=== PATIENT | female | born 1950 | race Native Hawaiian/Other Pacific Islander ===

== ENCOUNTER 2016-05-20 13:06 | Outpatient (CLI) | payer OTHER ==
[~2016-05-20 13:06] MED LIST: ASA LOW DOSE81 MG PO; ATENOLOL100 MG PO; CYCL10TA35 PO; LEVO0.0218 PO; LISI20TA11 PO; MELOXICAM7.5 MG OR; NEXIUM40 M1 PO; ROSU10TA PO
== END 2016-05-20 19:23 | disposition home or self-care (01) ==
LOC: CT 13:06
DX: I62.9 Nontraumatic intracranial hemorrhage, unspecified (principal); R05 Cough
CPT/HCPCS: 82565; 84520; Q9963

== ENCOUNTER 2016-05-21 11:06 | Outpatient (CLI) | payer OTHER | END 2016-05-21 19:14 | disposition home or self-care (01) | LOC: MAMMO 11:06 | DX: Z12.31 Encounter for screening mammogram for malignant neoplasm of breast (principal) | CPT/HCPCS: G0202-TC ==

== ENCOUNTER 2017-04-28 09:09 | Outpatient (CLI) | payer OTHER | END 2017-04-28 20:06 | disposition home or self-care (01) | LOC: CT 09:09 | DX: C34.90 Malignant neoplasm of unspecified part of unspecified bronchus or lung (principal) | CPT/HCPCS: 36415; 82565; 84520; Q9963 ==

== ENCOUNTER 2017-05-23 08:21 | Outpatient (CLI) | payer OTHER | END 2017-05-23 22:59 | disposition home or self-care (01) | LOC: MAMMO 08:21 | DX: Z12.31 Encounter for screening mammogram for malignant neoplasm of breast (principal) ==

== ENCOUNTER 2018-04-01 12:26 | Outpatient (CLI) | payer OTHER | END 2018-04-01 23:04 | disposition home or self-care (01) | LOC: MAMMO 12:26 | DX: N64.4 Mastodynia (principal) ==

== ENCOUNTER 2018-05-19 09:29 | Outpatient (CLI) | payer OTHER | END 2018-05-19 22:58 | disposition home or self-care (01) | LOC: CT 09:29 | DX: C34.90 Malignant neoplasm of unspecified part of unspecified bronchus or lung (principal); Z78.9 Other specified health status ==

== ENCOUNTER 2018-07-23 08:49 | Outpatient (CLI) | payer OTHER ==
[~2018-07-23] VITALS: Ht 162.6 cm; Wt 61.2 kg
[2018-07-23 09:10] VITALS: BP 153/70; TEMP 98.1
== END 2018-07-23 10:08 | disposition home or self-care (01) ==
LOC: INF 08:49
DX: M81.0 Age-related osteoporosis without current pathological fracture (principal)
CPT/HCPCS: 36415; 82310; 96372; J0897

== ENCOUNTER 2019-01-22 10:00 | Outpatient (CLI) | payer OTHER ==
[~2019-01-22] VITALS: Ht 160 cm; Wt 61.2 kg
[2019-01-22 10:10] VITALS: BP 135/63; TEMP 98.6
== END 2019-01-22 11:00 | disposition home or self-care (01) ==
LOC: INF 10:00
DX: M81.0 Age-related osteoporosis without current pathological fracture (principal)
CPT/HCPCS: 36415; 82310; 96372; J0897

== ENCOUNTER 2019-04-05 09:26 | Outpatient (CLI) | payer OTHER | END 2019-04-05 19:11 | disposition home or self-care (01) | LOC: MAMMO 09:26 | DX: Z12.31 Encounter for screening mammogram for malignant neoplasm of breast (principal) ==

== ENCOUNTER 2019-07-30 09:58 | Outpatient (CLI) | payer OTHER ==
[~2019-07-30] VITALS: Ht 160 cm; Wt 61.2 kg
== END 2019-07-30 19:19 | disposition home or self-care (01) ==
LOC: RAD 09:58 → LAB 09:58 → INF 09:58
DX: M81.0 Age-related osteoporosis without current pathological fracture (principal)
CPT/HCPCS: 36415; 82310; 96372; J0897

== ENCOUNTER 2019-10-25 10:14 | Outpatient (CLI) | payer OTHER | END 2019-10-25 19:16 | disposition home or self-care (01) | LOC: CT 10:14 | DX: R91.1 Solitary pulmonary nodule (principal) ==

== ENCOUNTER 2019-11-01 10:11 | Outpatient (CLI) | payer OTHER | END 2019-11-01 22:59 | disposition home or self-care (01) | LOC: US 10:11 | DX: R60.0 Localized edema (principal) ==

== ENCOUNTER 2019-11-16 14:32 | Outpatient (CLI) | payer OTHER | END 2019-11-16 19:17 | disposition home or self-care (01) | LOC: US 14:32 | DX: R42 Dizziness and giddiness (principal); E04.1 Nontoxic single thyroid nodule ==

== ENCOUNTER 2020-01-31 08:32 | Outpatient (CLI) | payer OTHER ==
[~2020-01-31] VITALS: Ht 160 cm; Wt 61.2 kg
[2020-01-31 09:00] VITALS: BP 144/66; TEMP 98.7
== END 2020-01-31 10:25 | disposition home or self-care (01) ==
LOC: INF 08:32
PROVIDERS: ATTEND Internal Medicine Endocrinology, Diabetes & Metabolism
DX: M81.0 Age-related osteoporosis without current pathological fracture (principal)
CPT/HCPCS: 36415; 82310; 96372; J0897

== ENCOUNTER 2020-02-09 16:05 | Observation (INO) | payer OTHER ==
[~2020-02-09] VITALS: Ht 162.6 cm; Wt 63.3 kg
[2020-02-09] VITALS (8 sets, daily range): BP systolic 120–167; BP diastolic 55–106; TEMP 98–98.5; Ht 162.6 cm; Wt 63.3 kg
[2020-02-09 16:25] LABS: PLATELET COUNT 203 K/uL (152-353)
[2020-02-09 16:31] LABS: POTASSIUM 4.4 mmol/L (3.6-5.2); SODIUM 135 mmol/L (136-145)
[2020-02-09 16:47] LABS: PARTIAL THROMBOPLASTIN TIME 22.7 SECONDS (24.5-33.6)
[2020-02-10 04:02] VITALS: BP 128/57; TEMP 98.6
[2020-02-10 08:00] VITALS: BP 129/57; TEMP 98.2
[2020-02-10 12:00] VITALS: BP 122/61; TEMP 97.7
[2020-02-10 16:00] VITALS: BP 138/51; TEMP 98.2
== END 2020-02-10 18:06 | disposition home or self-care (01) ==
LOC: ED 16:05 → MED/SURG 18:50
PROVIDERS: ADMIT Family Medicine; ATTEND Internal Medicine
DX: R41.82 Altered mental status, unspecified (principal); N95.1 Menopausal and female climacteric states; E03.8 Other specified hypothyroidism; I10 Essential (primary) hypertension; E78.49 Other hyperlipidemia; Z85.118 Personal history of other malignant neoplasm of bronchus and lung
CPT/HCPCS: 36415; 80053; 81000; 82533; 82550; 82553; 84436; 84443; 84479; 84484; 85027; 85610; 85730; 87635; 93005; 96374; 96375; 99220; 99284; G0378; J2405; U0003

== ENCOUNTER 2020-04-18 09:20 | Outpatient (CLI) | payer OTHER | END 2020-04-18 21:04 | disposition home or self-care (01) | LOC: MAMMO 09:20 | PROVIDERS: ATTEND Nurse Practitioner Family | DX: Z12.31 Encounter for screening mammogram for malignant neoplasm of breast (principal) ==

== ENCOUNTER 2020-08-25 08:47 | Outpatient (CLI) | payer OTHER ==
[~2020-08-25] VITALS: Ht 165.1 cm; Wt 68.0 kg
== END 2020-08-25 10:30 | disposition home or self-care (01) ==
LOC: INF 08:47
PROVIDERS: ATTEND Internal Medicine Endocrinology, Diabetes & Metabolism
DX: M81.0 Age-related osteoporosis without current pathological fracture (principal)
CPT/HCPCS: 36415; 82310; 96372; J0897

== ENCOUNTER 2020-11-17 10:34 | Outpatient (CLI) | payer OTHER | END 2020-11-17 19:18 | disposition home or self-care (01) | LOC: RAD 10:34 | PROVIDERS: ATTEND Nurse Practitioner Family | DX: C34.90 Malignant neoplasm of unspecified part of unspecified bronchus or lung (principal) ==

== ENCOUNTER 2021-02-26 09:11 | Outpatient (CLI) | payer OTHER ==
[~2021-02-26] VITALS: Ht 157.5 cm; Wt 61.2 kg
== END 2021-02-26 18:52 | disposition home or self-care (01) ==
LOC: INF 09:11
PROVIDERS: ATTEND Registered Nurse
DX: M81.0 Age-related osteoporosis without current pathological fracture (principal)
CPT/HCPCS: 82310; 96372; J0897

== ENCOUNTER 2021-04-24 09:27 | Outpatient (CLI) | payer OTHER | END 2021-04-24 18:54 | disposition home or self-care (01) | LOC: MAMMO 09:27 | PROVIDERS: ATTEND Nurse Practitioner Family | DX: Z12.31 Encounter for screening mammogram for malignant neoplasm of breast (principal) ==

== ENCOUNTER 2021-08-28 08:45 | Outpatient (CLI) | payer OTHER ==
[~2021-08-28] VITALS: Ht 165.1 cm; Wt 63.5 kg
[2021-08-28 09:03] VITALS: BP 120/60; TEMP 98.9
--- NOTE | 2021-08-28 09:03 | NUR ---
PT AMBULATED TO ROOM 1126 ACCOMPANIED BY LAB STAFF. VS OBTAINED
--- NOTE | 2021-08-28 09:42 | NUR ---
PT TOLERATED INJECTION WITH NO ADVERSE REACTION. PT EDUCATED TO CALL PCP IN JANUARY TO OBTAIN NEW ORDER FOR PROLIA INJECTION. PT VERBALIZED UNDERSTANDING. PT AMBULATED OUT OF FACILITY TO PO IN NO DISTRESS
== END 2021-08-28 20:35 | disposition home or self-care (01) ==
LOC: INF 08:45
PROVIDERS: ATTEND Internal Medicine
DX: M81.0 Age-related osteoporosis without current pathological fracture (principal)
CPT/HCPCS: 36415; 82310; 96372; J0897

== ENCOUNTER 2021-10-12 09:11 | Outpatient (CLI) | payer OTHER | END 2021-10-12 18:56 | disposition home or self-care (01) | LOC: RAD 09:11 | PROVIDERS: ATTEND Nurse Practitioner Family | DX: C34.90 Malignant neoplasm of unspecified part of unspecified bronchus or lung (principal) ==

== ENCOUNTER 2021-11-02 14:36 | Outpatient (CLI) | payer OTHER | END 2021-11-02 21:52 | disposition home or self-care (01) | LOC: MRI 14:36 | PROVIDERS: ATTEND Psychiatry & Neurology Neurology | DX: R41.82 Altered mental status, unspecified (principal) ==

== ENCOUNTER 2022-02-26 10:02 | Outpatient (CLI) | payer OTHER ==
[~2022-02-26] VITALS: Ht 165.1 cm; Wt 63.5 kg
[2022-02-26 10:17] VITALS: BP 129/55; TEMP 98.3
[2022-02-26 11:17] VITALS: BP 122/48; TEMP 98.5
== END 2022-02-26 22:18 | disposition home or self-care (01) ==
LOC: INF 10:02
PROVIDERS: ATTEND Internal Medicine
DX: M81.0 Age-related osteoporosis without current pathological fracture (principal)
CPT/HCPCS: 36415; 82310; 96372; J0897

== ENCOUNTER 2022-04-10 10:01 | Outpatient (CLI) | payer OTHER | END 2022-04-10 19:25 | disposition home or self-care (01) | LOC: MAMMO 10:01 | PROVIDERS: ATTEND Physician Assistant | DX: N64.4 Mastodynia (principal) | CPT/HCPCS: G0279 ==

== ENCOUNTER 2022-08-30 09:00 | Outpatient (CLI) | payer OTHER ==
[~2022-08-30] VITALS: Ht 162.6 cm; Wt 63.5 kg
[2022-08-30 09:40] VITALS: BP 115/49; TEMP 97.9
[2022-08-30 10:15] VITALS: BP 116/55; TEMP 97.7
== END 2022-08-30 19:10 | disposition home or self-care (01) ==
LOC: INF 09:00
PROVIDERS: ATTEND Internal Medicine
DX: M81.0 Age-related osteoporosis without current pathological fracture (principal)
CPT/HCPCS: 36415; 82310; 96372; J0897

== ENCOUNTER 2022-10-07 10:27 | Outpatient (CLI) | payer OTHER | END 2022-10-07 19:11 | disposition home or self-care (01) | LOC: CT 10:27 | PROVIDERS: ATTEND Nurse Practitioner Family | DX: C34.90 Malignant neoplasm of unspecified part of unspecified bronchus or lung (principal) ==

== ENCOUNTER 2023-03-31 13:08 | Emergency (ER) | payer OTHER ==
[~2023-03-31] VITALS: Ht 162.6 cm; Wt 61.2 kg
[2023-03-31 13:15] VITALS: TEMP 97.3
[2023-03-31 14:13] LABS: PLATELET COUNT 212 K/uL (152-353)
[2023-03-31 14:15] LABS: POTASSIUM 3.9 mmol/L (3.6-5.2)
[2023-03-31 16:15] VITALS: BP 131/60
== END 2023-03-31 16:58 | disposition home or self-care (01) ==
LOC: ED 13:08
PROVIDERS: Family Medicine
DX: R11.2 Nausea with vomiting, unspecified (principal); R51.9 Headache, unspecified; R53.1 Weakness; R41.0 Disorientation, unspecified; F41.9 Anxiety disorder, unspecified; F41.0 Panic disorder [episodic paroxysmal anxiety]; E86.0 Dehydration
CPT/HCPCS: 36415; 80053; 81002; 82150; 83605; 83690; 85027; 87502; 87635; 96361; 96374; 99284; J2405; U0003

== ENCOUNTER 2023-04-22 13:21 | Outpatient (CLI) | payer OTHER | END 2023-04-22 20:21 | disposition home or self-care (01) | LOC: MRI 13:21 | PROVIDERS: ATTEND Orthopaedic Surgery Orthopaedic Surgery of the Spine | DX: M54.2 Cervicalgia (principal) ==